=== PATIENT | female | born 1940 | race Caucasian/White ===

== ENCOUNTER 2024-04-20 18:29 | Emergency (ER) | payer OTHER ==
[~2024-04-20] VITALS: Ht 180.3 cm; Wt 104.3 kg
[~2024-04-20 18:29] MED LIST: CEFD300 PO; CYCL10 PO; LEVSOD100 PO; LISI20 PO; METF850 PO; NAPR375 PO; PRAV20 PO
[2024-04-20] MEDS ORDERED: NS 1,000 ML IV SCH (18:35)
[2024-04-20 19:27] LABS: BASOPHILS ABSOLUTE AUTO 0.05 K/mm3 (0.00-0.23); BASOPHILS PERCENT AUTO 0 % (0-2); EOSINOPHILS PERCENT AUTO 0 % (0-6); Hematocrit 36.4 % (33.0-51.0); Hemoglobin 11.9 g/dL (11.5-16.0); IMMATURE GRAN ABSOLUTE AUTO 0.05 K/mm3 (0.00-0.10); IMMATURE GRAN PERCENT AUTO 0 % (0-1); LYMPHOCYTES ABSOLUTE AUTO 0.55 K/mm3 (0.84-5.20); LYMPHOCYTES PERCENT AUTO 5 % (21-46); MONOCYTES ABSOLUTE AUTO 0.32 K/mm3 (0.16-1.47); MONOCYTES PERCENT AUTO 3 % (4-13); Mean Corpuscular HGB 28.7 pg (26.0-34.0); Mean Corpuscular HGB Conc 32.7 g/dL (31.5-36.5); Mean Corpuscular Volume 88 fL (80-100); Mean Platelet Volume 10.4 fL (9.1-12.4); NEUTROPHILS PERCENT AUTO 92 % (41-73); Platelet Count 192 K/mm3 (150-400); RDW Coefficient Variation 14.6 % (11.7-14.2); RDW Standard Deviation 47.3 fL (35.1-46.3); Red Blood Cell Count 4.14 M/mm3 (3.80-5.20); White Blood Cell Count 11.47 K/mm3 (4.00-11.30)
[2024-04-20 19:33] LABS: Source, Urine Clean Catch
[2024-04-20 19:40] LABS: Appearance, Urine Turbid (Clear); Blood, Urine 5+ (Neg); Color, Urine Yellow (P-Yellow); Glucose Qualitative, Urine Neg (Neg); Ketones, Urine 2+ (Neg); Leukocyte Esterase, Urine 3+ (Neg); Nitrite, Urine Pos (Neg); Protein, Urine 3+ (Neg); Specific Gravity, Urine 1.025 (1.003-1.022); Urobilinogen, Urine NORM (Normal)
[2024-04-20 19:49] LABS: Albumin, Blood 3.6 g/dL (3.4-5.0); Albumin/Globulin Ratio 1.1 (0.8-1.8); Bilirubin, Total 0.9 mg/dL (0.1-1.0); Bun/Creatinine Ratio 22.4 (12.0-20.0); Calcium, Blood 9.1 mg/dL (8.5-10.1); Creatinine, Blood 1.34 mg/dL (0.40-1.00); Globulin, Blood 3.3 g/dL (2.2-4.0); Potassium, Blood 4.4 mmol/L (3.5-5.5); Total Protein, Blood 6.9 g/dL (6.4-8.2)
[2024-04-20 20:05] LABS: Influenza A, PCR NEGATIVE (NEGATIVE); Influenza B, PCR NEGATIVE (NEGATIVE); Resp Syncytial Virus, PCR NEGATIVE (NEGATIVE); SARS-Cov-2 (COVID-19) PCR, MMC NEGATIVE (NEGATIVE)
[2024-04-20 20:09] LABS: Bilirubin, Urine 1+ (Neg)
[2024-04-20 20:13] LABS: Bacteria Many /hpf; Mucus Light (0-Heavy); Red Blood Cells, Urine 25-50 /hpf (0-2); Squamous Epithelial Cells Mod /hpf (Few); Transitional Epithelial Cells Rare /hpf (0-Rare); White Blood Cells, Urine TNTC /hpf (0-5)
[2024-04-20] MEDS ORDERED: CefTRIAXone Sodium 1,000 MG in NS 50 ML IV ONE (20:25)
[2024-04-20 20:30] VITALS: BP 117/57
[2024-04-20] MEDS ORDERED: CEPH500 PO (20:58)
== END 2024-04-20 21:13 | disposition home or self-care (01) ==
LOC: ER 18:29
PROVIDERS: Emergency Medicine
DX: T67.5XXA Heat exhaustion, unspecified, initial encounter (principal); N39.0 Urinary tract infection, site not specified; Z88.0 Allergy status to penicillin; Z79.899 Other long term (current) drug therapy; Z79.84 Long term (current) use of oral hypoglycemic drugs; I10 Essential (primary) hypertension; E11.9 Type 2 diabetes mellitus without complications
CPT/HCPCS: 0241U; 51702; 71045; 80053; 81001; 82550; 85025; 96361-59; 96365-59; 99284-25; J0696; J7030

== ENCOUNTER 2024-06-10 01:41 | Inpatient (IN) | payer MEDICARE ==
[2024-06-10] VITALS (7 sets, daily range): BP systolic 100–150; BP diastolic 53–105
[~2024-06-10] VITALS: Ht 180.3 cm; Wt 117.2 kg
[~2024-06-10 01:41] MED LIST changes: +CEPH500 PO
[2024-06-10 02:23] LABS: BASOPHILS ABSOLUTE AUTO 0.03 K/mm3 (0.00-0.23); BASOPHILS PERCENT AUTO 0 % (0-2); EOSINOPHILS PERCENT AUTO 0 % (0-6); Hemoglobin 12.4 g/dL (11.5-16.0); IMMATURE GRAN ABSOLUTE AUTO 0.11 K/mm3 (0.00-0.10); IMMATURE GRAN PERCENT AUTO 1 % (0-1); LYMPHOCYTES ABSOLUTE AUTO 0.51 K/mm3 (0.84-5.20); LYMPHOCYTES PERCENT AUTO 4 % (21-46); MONOCYTES ABSOLUTE AUTO 0.71 K/mm3 (0.16-1.47); MONOCYTES PERCENT AUTO 6 % (4-13); Mean Corpuscular HGB 29.6 pg (26.0-34.0); Mean Corpuscular HGB Conc 33.5 g/dL (31.5-36.5); Mean Corpuscular Volume 88 fL (80-100); Mean Platelet Volume 10.6 fL (9.1-12.4); NEUTROPHILS ABSOLUTE AUTO 10.62 K/mm3 (1.96-9.15); NEUTROPHILS PERCENT AUTO 89 % (41-73); Platelet Count 149 K/mm3 (150-400); RDW Coefficient Variation 14.3 % (11.7-14.2); RDW Standard Deviation 46.2 fL (35.1-46.3); Red Blood Cell Count 4.19 M/mm3 (3.80-5.20); White Blood Cell Count 11.98 K/mm3 (4.00-11.30)
[2024-06-10 02:31] LABS: Albumin, Blood 3.4 g/dL (3.4-5.0); Albumin/Globulin Ratio 0.9 (0.8-1.8); Bilirubin, Total 1.2 mg/dL (0.1-1.0); Bun/Creatinine Ratio 16.7 (12.0-20.0); Calcium, Blood 9.2 mg/dL (8.5-10.1); Creatinine, Blood 1.2 mg/dL (0.40-1.00); Globulin, Blood 3.6 g/dL (2.2-4.0); Potassium, Blood 4.9 mmol/L (3.5-5.5)
[2024-06-10 03:08] LABS: Source, Urine Straight Cath
[2024-06-10 03:11] LABS: Bilirubin, Urine Neg (Neg); Blood, Urine 5+ (Neg); Glucose Qualitative, Urine 3+ (Neg); Ketones, Urine Neg (Neg); Leukocyte Esterase, Urine 3+ (Neg); Nitrite, Urine Pos (Neg); Protein, Urine 3+ (Neg); Urobilinogen, Urine NORM (Normal)
[2024-06-10 03:19] LABS: Color, Urine Yellow (P-Yellow)
[2024-06-10 03:20] LABS: Appearance, Urine Cloudy (Clear)
[2024-06-10] MEDS ORDERED: NS 1,000 ML IV SCH ×2 (03:20→05:05)
[2024-06-10 03:21] LABS: Red Blood Cells, Urine 0-2 /hpf (0-2); White Blood Cells, Urine TNTC /hpf (0-5)
[2024-06-10 03:22] LABS: Bacteria Many /hpf; Squamous Epithelial Cells Few /hpf (Few)
[2024-06-10] MEDS ORDERED: CefTRIAXone Sodium 2,000 MG in NS 100 ML IV ONE (03:25)
[2024-06-10] MEDS ORDERED: Glucophage 850850 MG PO (04:19)
[2024-06-10] MEDS ORDERED: GLIP5 PO (04:19)
[2024-06-10] MEDS ORDERED: LEVOTHYROXINE PO (04:21)
[2024-06-10] MEDS ORDERED: Ondansetron HCl 2 MG / ML 2ML Vial IV PRN (05:05)
[2024-06-10] MEDS ORDERED: Levothyroxine Sodium 0.15 MG Tab PO SCH (06:00)
--- NOTE | 2024-06-10 06:29 | NUR ---
ARRIVAL TO PCU AFTER RECEIVING REPORT FROM ED RN, PATIENT TRANSFERRED TO PCU AT APPROX 0605. PATIENT TRANSFERRED OVER TO BED VIA SLIDER SHEET. PATIENT ALERT, ANSWERS ORIENTATION QUESTIONS. IS ANXIOUS, FEARFUL OF FALLING. THERAPEUTIC COMMUNICATION PROVIDED. MEDICAL ALERT NECKLACE REMOVED AND PLACED IN PERSONAL BELONGINGS BAGS. ENDORSING R KNEE PAIN, NO SWELLING OR DISCOLORATION NOTED. AFEBRILE. TELEMETRY SHOWING SINUS TACH 90s-110s. BP STABLE. SBP 110s. DENIES CHEST PAIN, PRESSURE. ON ROOM AIR, SATs >90%. TACHYPNEA AT REST. NS BOLUS FROM ED STILL INFUSING. ATTENDS CHANGE AND PW PLACED FOR URINARY INCONTINENCE. REDNESS, EXCORIATION TO BOTTOM, GROIN, AND ABD FOLDS. PICTURES IN CHART. CALL LIGHT IN REACH. WILL CONTINUE TO MONITOR AND REPORT TO ONCOMING RN.
[2024-06-10] MEDS ORDERED: Insulin Human Lispro 100 Units/ML 3ML Syringe SC SCH (07:30)
--- NOTE | 2024-06-10 07:42 | NUR ---
[facility] @ 3.4 CALLED FROM LAB GIVEN TO TARA CALIXTO. CALLED AT 07:40AM. WILL NOTIFY
[2024-06-10] MEDS ORDERED: Acetaminophen 325 MG TABLET PO PRN (08:50)
[2024-06-10] MEDS ORDERED: Lactobacil 2-S.Thermo-Bifido 1 1 Cap PO SCH (09:00)
[2024-06-10] MEDS ORDERED: Enoxaparin 30 MG/0.3 ML SYR SC SCH (09:00)
[2024-06-10] MEDS ORDERED: Pravastatin Sodium 20 MG Tab PO SCH (09:00)
[2024-06-10 09:20] LABS: Free Thyroxine 1.67 ng/dL (0.70-1.60); Triiodothyronine, Free 2.57 pg/mL (2.18-3.98)
[2024-06-10] MEDS ORDERED: Miconazole Nitrate 2% 85 GM PWD TOP PRN (10:25)
--- NOTE | 2024-06-10 10:56 | NUR ---
X-RAY TRANSPORTER TO ROOM AND TRANSFERED PT VIA SLIDER SHEET TO [facility] AT THIS TIME GOING TO X-RAY.
--- NOTE | 2024-06-10 11:13 | NUR ---
PT RETURNED FROM X-RAY, BACK IN BED AND HAS CALL LIGHT WITHIN REACH. RESTING WITH EVEN UNLABORED BREATHING.
[2024-06-10 14:41] LABS: Calcium, Blood 8.6 mg/dL (8.5-10.1); Creatinine, Blood 1.15 mg/dL (0.40-1.00); Potassium, Blood 4.6 mmol/L (3.5-5.5)
[2024-06-10] MEDS ORDERED: TraMADol HCl 50 MG Tab PO PRN (15:15)
--- NOTE | 2024-06-10 17:30 | NUR ---
END OF SHIFT NOTE: PT A&OX4 AND ABLE TO MAKE HER NEEDS KNOWN, USES CALL LIGHT APPROPRIATELY. VITAL SIGNS HAVE BEEN STABLE WITH O2 SATURATION >94% ON ROOM AIR, TELE SHOWING SINUS WITH PAC'S RATE IN 80'S, AND BLOOD PRESSURES HAVE BEEN STABLE. PT DID HAVE A RUN OF TACHY WITH A RATE IN 150'S @ 0900, SINCE THEM RATE HAS BEEN TRENDING DOWN TO 80-100. PT HAS BEEN INCONTINET TO URINE THIS SHIFT AND HAS A PUREWICK PLACED. DID A BLADDER SCAN SHOWING 28MLS AFTER VOIDING IN HER BRIEF.HAD A PELIVS, RIGHT ANKLE AND LEG X-RAY DONE DUE TO PAIN IN RIGHT KNEE AND SWOLLEN/BRUISED ANKLE. DR. SIMENTAL CONSULTED AND CAME BY AND A CAST BOOT WILL BE PLACED AND CONTINUE TO WORK WITH PT.NEEDED COVERAGE OF GLUCOSE PER EMAR THROUGHOUT THE SHIFT. LACTIC HAS LEVELED OUT TO 1.6 AND HAS NORMAL SALINE RUNNING AT 150MLS/HR. PAIN MEDICATION WAS GIVEN THROUHGOUT THE SHIFT FOR 8/10 PAIN IN HER RIGHT LEG. WILL NOTIFY TO ONCOMING SHIFT.
[2024-06-10] MEDS ORDERED: Famotidine 20 MG Tab PO SCH (21:00)
[2024-06-11 03:53] VITALS: BP 102/80
[2024-06-11 04:32] LABS: BASOPHILS ABSOLUTE AUTO 0.02 K/mm3 (0.00-0.23); BASOPHILS PERCENT AUTO 0 % (0-2); EOSINOPHILS PERCENT AUTO 0 % (0-6); Hematocrit 29.6 % (33.0-51.0); Hemoglobin 9.8 g/dL (11.5-16.0); IMMATURE GRAN ABSOLUTE AUTO 0.02 K/mm3 (0.00-0.10); IMMATURE GRAN PERCENT AUTO 0 % (0-1); LYMPHOCYTES ABSOLUTE AUTO 1.53 K/mm3 (0.84-5.20); LYMPHOCYTES PERCENT AUTO 26 % (21-46); MONOCYTES ABSOLUTE AUTO 0.03 K/mm3 (0.16-1.47); MONOCYTES PERCENT AUTO 1 % (4-13); Mean Corpuscular HGB 28.9 pg (26.0-34.0); Mean Corpuscular HGB Conc 33.1 g/dL (31.5-36.5); Mean Corpuscular Volume 87 fL (80-100); NEUTROPHILS ABSOLUTE AUTO 4.24 K/mm3 (1.96-9.15); NEUTROPHILS PERCENT AUTO 73 % (41-73); Platelet Count 111 K/mm3 (150-400); RDW Coefficient Variation 14.5 % (11.7-14.2); RDW Standard Deviation 46.5 fL (35.1-46.3); Red Blood Cell Count 3.39 M/mm3 (3.80-5.20); White Blood Cell Count 5.84 K/mm3 (4.00-11.30)
[2024-06-11 05:03] LABS: Bun/Creatinine Ratio 23.1 (12.0-20.0); Calcium, Blood 7.9 mg/dL (8.5-10.1); Creatinine, Blood 0.99 mg/dL (0.40-1.00); Potassium, Blood 4.4 mmol/L (3.5-5.5)
--- NOTE | 2024-06-11 05:37 | NUR ---
SHIFT SUMMARY ASSUMED CARE OF PT AT 1900. PT IS A/OX4. HEART SOUNDS REGULAR. LUNG SOUNDS DIMINISHED AT BASES. PT HAD PAIN IN R LEG AND WOULD ASK FOR PAIN MEDICATIONS EVERY 6 HOURS ORDERED. PT R LEG IS SWOLLEN WITH BRUSING ON R ANKLE. PT REPOSITIONED IN BED WITH 2P ASSIST. PT WAS INCONTINENT OF URINE IN [facility]. PT RESTED WITH EYES CLOSED MOST OF THE NOC.
[2024-06-11] MEDS ORDERED: Levothyroxine Sodium 0.125 MG Tab PO SCH (06:00)
[2024-06-11 08:00] VITALS: BP 120/81
[2024-06-11] MEDS ORDERED: Sodium Bicarbonate 650 MG Tab PO SCH (09:00)
[2024-06-11] MEDS ORDERED: CefTRIAXone Sodium 1,000 MG in NS 100 ML IV SCH (09:00)
[2024-06-11] MEDS ORDERED: FentaNYL Citrate 50 MCG/ML 2 ML Injection IV PRN (10:15)
[2024-06-11] MEDS ORDERED: HYDROcodone 5-APAP 325 TAB PO PRN (10:15)
[2024-06-11 11:09] VITALS: BP 105/58
[2024-06-11 16:58] VITALS: BP 108/72
--- NOTE | 2024-06-11 17:28 | NUR ---
SUMMARY PT A/O X4. HAS PAIN IN R ANKLE WHERE SHE HAD A FALL AT HOME AND SPRAINED HER ANKLE. PODIETRIST SAW PT TODAY AND PT WAS FITTED WITH A WALKING BOOT. PT VERY APREHENSIVE ABOUT GETTING OOB TODAY BUT WAS ENCOURAGED TO WORK WITH PHYSICAL THERAPY. PAIN MEDICATION CHANGED TO NORCO AND THAT SEEMS TO BE CONTROLING PAIN BETTER THAN TRAMADOL. NO OTHER ACUTE CHANGES. CHANGED TO MEDICAL STATUS TODAY.
[2024-06-11 19:24] VITALS: BP 112/54
[2024-06-11] MEDS ORDERED: Pravastatin Sodium 20 MG Tab PO SCH (21:00)
[2024-06-12 04:00] VITALS: BP 126/72
[2024-06-12 04:16] LABS: BASOPHILS ABSOLUTE AUTO 0.01 K/mm3 (0.00-0.23); BASOPHILS PERCENT AUTO 0 % (0-2); EOSINOPHILS ABSOLUTE AUTO 0.37 K/mm3 (0.00-0.68); EOSINOPHILS PERCENT AUTO 8 % (0-6); Hematocrit 28.9 % (33.0-51.0); Hemoglobin 9.4 g/dL (11.5-16.0); IMMATURE GRAN ABSOLUTE AUTO 0.02 K/mm3 (0.00-0.10); IMMATURE GRAN PERCENT AUTO 0 % (0-1); LYMPHOCYTES ABSOLUTE AUTO 1.14 K/mm3 (0.84-5.20); LYMPHOCYTES PERCENT AUTO 24 % (21-46); MONOCYTES PERCENT AUTO 13 % (4-13); Mean Corpuscular HGB 28.5 pg (26.0-34.0); Mean Corpuscular HGB Conc 32.5 g/dL (31.5-36.5); Mean Corpuscular Volume 88 fL (80-100); Mean Platelet Volume 10.9 fL (9.1-12.4); NEUTROPHILS PERCENT AUTO 55 % (41-73); Platelet Count 106 K/mm3 (150-400); RDW Coefficient Variation 14.4 % (11.7-14.2); RDW Standard Deviation 46.8 fL (35.1-46.3); White Blood Cell Count 4.74 K/mm3 (4.00-11.30)
[2024-06-12 04:29] LABS: Bun/Creatinine Ratio 25.2 (12.0-20.0); Calcium, Blood 8.2 mg/dL (8.5-10.1); Creatinine, Blood 0.95 mg/dL (0.40-1.00); Potassium, Blood 4.6 mmol/L (3.5-5.5)
--- NOTE | 2024-06-12 05:14 | NUR ---
SHIFT SUMMARY ASSUMED CARE OF PT AT 1900. PT IS A/OX4. HEART SOUNDS REGULAR. LUNG SOUNDS HAVE CRACKLES AT BASES. PT REQUESTED PAIN MEDICATION EVERY HOURS, THIS NURSE INFORMED PT THAT SHE MUST CALL FOR PAIN MEDICATIONS IF SHE IS IN PAIN, THEY ARE NOT SCHEDULED. PT ALSO ASKED THIS NURSE TO MOVE HER LEGS IN BED DUE TO BEING TIRED FROM THERAPY. THIS NURSE ENCOURAGED PT TO MOVE THEN HERSELF, WITH MINIMAL ASSSISTANCE IF SHE WANTS TO GO HOME. PT NODDED IN UNDERSTANDING. PT RESTED WITH EYES CLOSED T/O THE NOC.
[2024-06-12 09:12] VITALS: BP 144/72
[2024-06-12 15:46] VITALS: BP 147/82
--- NOTE | 2024-06-12 16:39 | NUR ---
SHIFT SUMMARY PT A&Ox4, CALLS AND COMMUNICATES NEEDS APPROPRIATELY. VERY UNMOTIVATED AND MANIPULATIVE WHEN IT COME TO PROVIDING CARE. BP STABLE, SINUS 80's, DENIES CP/PRESSURE. SpO2> 92% RA, DENIES CP/PRESSURE. PT REFUSES TO GET OUT OF BED AND RESUSES Q2 TURNS, PROVIDED EDUCATION. MANAGED PT's PAIN PER EMAR. NO OTHER EVENTS, WILL REPORT TO ONCOMING RN.
[2024-06-12 19:29] VITALS: BP 138/69
[2024-06-13 00:22] VITALS: BP 133/99
[2024-06-13 03:54] VITALS: BP 142/94
[2024-06-13 04:16] LABS: BASOPHILS ABSOLUTE AUTO 0.02 K/mm3 (0.00-0.23); BASOPHILS PERCENT AUTO 0 % (0-2); EOSINOPHILS ABSOLUTE AUTO 0.42 K/mm3 (0.00-0.68); EOSINOPHILS PERCENT AUTO 8 % (0-6); Hematocrit 28.9 % (33.0-51.0); Hemoglobin 9.5 g/dL (11.5-16.0); IMMATURE GRAN ABSOLUTE AUTO 0.01 K/mm3 (0.00-0.10); IMMATURE GRAN PERCENT AUTO 0 % (0-1); LYMPHOCYTES ABSOLUTE AUTO 1.22 K/mm3 (0.84-5.20); LYMPHOCYTES PERCENT AUTO 24 % (21-46); MONOCYTES PERCENT AUTO 12 % (4-13); Mean Corpuscular HGB 28.8 pg (26.0-34.0); Mean Corpuscular HGB Conc 32.9 g/dL (31.5-36.5); Mean Corpuscular Volume 88 fL (80-100); Mean Platelet Volume 10.6 fL (9.1-12.4); NEUTROPHILS PERCENT AUTO 55 % (41-73); Platelet Count 127 K/mm3 (150-400); RDW Coefficient Variation 14.2 % (11.7-14.2); RDW Standard Deviation 45.6 fL (35.1-46.3); White Blood Cell Count 5.07 K/mm3 (4.00-11.30)
[2024-06-13 04:41] LABS: Bun/Creatinine Ratio 24.5 (12.0-20.0); Calcium, Blood 8.6 mg/dL (8.5-10.1); Creatinine, Blood 0.9 mg/dL (0.40-1.00); Potassium, Blood 4.5 mmol/L (3.5-5.5)
--- NOTE | 2024-06-13 04:45 | NUR ---
SHIFT NOTE: PT A/0X4 ABLE TO USE CALL LIGHT TO MAKE NEEDS KNOWN. SHE IS VERY ANXIOUS AND NEEDS FREQUENT REASSURANCE. SHE IS ON TELE IN SINUS, DENIES CHEST PAIN/PRESSURE. SHE IS ON RA WITH SPO2>95%. SHE IS UNMOTIVATED TO MOVE HERSELF IN BED, SHE HAS BEEN REPOSITIONED BY STAFF Q2. SHE HAS A PUREWICK IN PLACE DRAINING TO SUCTION. WILL CONTINUE TO MONITOR AND REPORT TO ONCOMING RN
[2024-06-13 08:59] VITALS: BP 145/66
[2024-06-13 15:00] VITALS: BP 132/83
--- NOTE | 2024-06-13 16:07 | NUR ---
TRANSFER TO 331 PT A&Ox4, CALLS AND COMMUNICATES NEEDS APPROPRIATELY. VERY UNMOTIVATED AND MANIPULATIVE WHEN IT COME TO PROVIDING CARE. BP STABLE, SINUS 80's, DENIES CP/PRESSURE. SpO2> 92% RA, DENIES CP/PRESSURE. PT REFUSES TO GET OUT OF BED AND REFUSES Q2 TURNS, PROVIDED EDUCATION. PUREWICK IN PLACE, PATENT. MANAGED PT's PAIN PER EMAR. REPORT GIVEN TO DURGA UGALDE. ALL PT BELONGINGS GATHERED AND PT TRANSFERED TO [facility] VIA HOSPITAL BED AT APPROXIMATELY 1600.
--- NOTE | 2024-06-13 16:35 | NUR ---
TRANSFERRED NOTE: PATIENT ARRIVES TO ROOM AT 1600 VIA BED FROM PCU RM 8. ASSUME CARE OF PATIENT. SKIN ASSESSMENT c 2 RN'S VERIFIED COMPLETED. PATIENT ORIENTATED TO ROOM AND CALL SYSTEM. PATIENT PROVIDED c FRESH ICE H20, BOTH HIPS, BLE'S FLOATED ON PILLOWS. PATIENT ON TELE, NO EVENTS ON TELE, SR HR IN THE 80'S BPM. PATIENT HAS PIV TO R FOREARM SL. PATIENT DENIES CP/PRESSURE, SOB, N/V AND DIZZINESS. PATIENT RESTING IN BED c HOB ELEVATED. PATIENT INCONTINENT OF BLADDER, PUREWICK AND ATTENDS IN PLACED. CALL LIGHT IN REACH.
[2024-06-13 19:09] VITALS: BP 101/77
[2024-06-14 04:08] VITALS: BP 135/66
--- NOTE | 2024-06-14 04:35 | NUR ---
SHIFT SUMMARY: Pt is admitted for sepsis and is a full code. Is alert and able to make needs known. ADLs have been 1p but did not get out of bed during shift. Pain was managed with PRN pain medication. Peter reports sinus in the 80s.
[2024-06-14 07:30] VITALS: BP 139/85
[2024-06-14] MEDS ORDERED: NS 250 ML IV PRN (08:05)
[2024-06-14 15:33] VITALS: BP 121/43
--- NOTE | 2024-06-14 15:58 | NUR ---
SHIFT SUMMARY: NO NEW CHANGES THIS SHIFT. PATIENT A/OX4, PLEASANT AND COOPERATIVE c CARE THIS SHIFT. PATIENT DENIES CP/PRESSURE, SOB, N/V AND DIZZINESS. PATIENT STILL ON TELE, SR HR IN THE 70'S BPM. MIPELEX DRESSING CHANGED TO COCCYX, REPOSITIONED, GREAT APPETITE, INCONTINENT OF BLADDER, PUREWICKED AND ATTENDS IN PLACED, TOLERATING WELL. PATIENT RECEIVED SCHEDULED MEDS PER EMAR. VITAL SIGNS REVIEWED. PATIENT AWAITING INSURANCE AUTH TO D/C SNF. BED ALARM ON FOR SAFETY. CALL LIGHT IN REACH.
--- NOTE | 2024-06-14 18:13 | NUR ---
TRANSFERRED CARE FROM TRAM RN, WILL RELAY TO PM RN
[2024-06-14 20:36] VITALS: BP 107/55
[2024-06-15 04:58] VITALS: BP 124/77
[2024-06-15 07:23] VITALS: BP 130/73
[2024-06-15 15:18] VITALS: BP 141/72
--- NOTE | 2024-06-15 18:48 | NUR ---
SUMMARY- PT AAOX3-4. BEDREST. PT REFUSED TO GET OOB THIS SHIFT. GIVEN BED BATH THIS SHIFT. PT HAS STAGE 2 ULCER ON COCCYX. DRESSING CHANGED THIS SHIFT. PT HAD COMPLAINTS OF PAIN IN HER R ANKLE THIS SHIFT-PAIN MEDS PER EMAR HELPED PER PT. NO ACUTE EVENTS THIS SHIFT. PT ON RA.
[2024-06-15 19:26] VITALS: BP 147/76
[2024-06-16 04:00] VITALS: BP 145/68
--- NOTE | 2024-06-16 06:21 | NUR ---
Patient alert and oriented x3, VSS, resting in bed on room air. PRN pain medication given x1 per patient request, tolerated well. Purewick in place, collecting appropriately. Patient had one incontinent bowel movement this shift. Extensive education provided as tolerated regarding frequent turns, pressure injury prevention, current skin and mobility issues; patient initially resistant r/t prior healthcare incidents with being dropped, injuries, but compliant with turns for majority of shift.
[2024-06-16 07:43] VITALS: BP 146/82
--- NOTE | 2024-06-16 14:10 | NUR ---
LEFT ADVANCE DIRECTIVE WITH PT FOR REVIEW. PT DENIES ANY ACUTE NEEDS AT THIS TIME.
--- NOTE | 2024-06-16 14:24 | NUR ---
PATIENT REFUSES TO USE A BEDPAN AND PREFERS TO HAVE BM IN BRIEF. HAD TO CHANGE THE BEDDING. I BROUGHT IN A BARIATRIC BEDPAN AND SHOWED HER HOW NICE IT IS. AFTER THE PAINFUL BED CHANGE AND BRIEF CHANGE, SHE IS NOW WILLING TO TRY THE BARIATRIC BED HECK.
[2024-06-16 16:04] VITALS: BP 128/71
--- NOTE | 2024-06-16 18:46 | NUR ---
PT A&OX4 TODAY, ABLE TO MAKE NEEDS KNOWN. TOLERATED IV FLUIDS/ANTIBIOTICS WELL. PUREWICK IN PLACE, WAS CHANGED BY LITHOGRAPHIC STRIPPER. OUTPUT IS ADEQUATE, HAD BM. CALL LIGHT WITHIN REACH.
[2024-06-16 19:22] VITALS: BP 142/85
[2024-06-17 03:19] VITALS: BP 149/76
--- NOTE | 2024-06-17 04:04 | NUR ---
PT RESTLESS AND C/O PAIN THROUGH THE NIGHT. MEDICATED X 2. PT RESTING QUIETLY IN BED WITH EYES CLOSED. NO DISTRESS NOTED AT THIS TIME. WILL CONTINUE TO MONITOR.
--- NOTE | 2024-06-17 14:53 | NUR ---
Pt given power of deputy county attorney inormation. Very anxious about her papers and planning her life. Review of her painfull foot with the nurse. Will follow up with further discussion on code status.
[2024-06-17 15:13] VITALS: BP 138/60
--- NOTE | 2024-06-17 19:29 | NUR ---
SUMMARY- NO CHANGES WITH PT THIS SHIFT. PT AAOX4. PT AGREED TO SIT ON EDGE OF BED FOR LUNCH, BUT REFUSED TO SIT IN CHAIR. PAIN WELL CONTROLLED WITH EMAR PAIN MEDS. NO ACUTE EVENTS THIS SHIFT. PT ON RA.
[2024-06-17 19:36] VITALS: BP 147/77
[2024-06-18 03:02] VITALS: BP 150/83
--- NOTE | 2024-06-18 04:33 | NUR ---
PT RESTLESS. MEDICATED X 2 THROUGH THE NIGHT. INCONTINENT OF BM X2. RESTING INTERMITTENTLY.
[2024-06-18 07:40] VITALS: BP 157/75
[2024-06-18] MEDS ORDERED: EUTHYROX125 MCG PO (12:06)
[2024-06-18] MEDS ORDERED: FAMO20 PO (12:07)
[2024-06-18] MEDS ORDERED: Acetaminophen325 M1 PO (12:07)
[2024-06-18] MEDS ORDERED: Norco 5-325 Ta1 EACH PO (12:08)
[2024-06-18] MEDS ORDERED: HUMULIN R100 UNIT/2 (12:09)
[2024-06-18] MEDS ORDERED: SODBIC650 PO (12:10)
[2024-06-18] MEDS ORDERED: MICONAZOLE NITR85 GM TOP (12:10)
[2024-06-18] MEDS ORDERED: NYSTATIN100000 U10 MT (12:10)
[2024-06-18] MEDS ORDERED: CELE100 PO (12:11)
[2024-06-18] MEDS ORDERED: Nystatin 100,000 Unit/ML Susp 5 ML UDC SS SCH (13:00)
--- NOTE | 2024-06-18 13:44 | NUR ---
PT HAS BEEN AOX4 AND COOPERATIVE OF CARE. PT TRANSFERED AT 1340 TO [facility] REPORT GIVEN PRIOR TO TRANSPORT VIA GURNEY. PT HAS BEEN COOPERATIVE OF CARE ONLY WANTING TO STAY IN BED AND REST.PT WAS TREATED FOR PAIN PER EMAR. ALL PERSONAL BELONINGS WERE COLLECTED AND SENT WITH PT. PACKET WAS SENT WITH TRANSPORTERS.
== END 2024-06-18 13:40 | DRG 872 ==
LOC: ER 01:41 → MEDS 05:00 → ERHOLD 05:00 → PCU 05:00 → MEDS 06-13 16:02
PROVIDERS: Emergency Medicine; Family Medicine; ADMIT Internal Medicine
DX: A41.9 Sepsis, unspecified organism (principal); N39.0 Urinary tract infection, site not specified; E87.1 Hypo-osmolality and hyponatremia; E87.20 Acidosis, unspecified; R65.20 Severe sepsis without septic shock; D69.6 Thrombocytopenia, unspecified; E03.9 Hypothyroidism, unspecified; I10 Essential (primary) hypertension; S93.401A Sprain of unspecified ligament of right ankle, initial encounter; W18.30XA Fall on same level, unspecified, initial encounter; E11.40 Type 2 diabetes mellitus with diabetic neuropathy, unspecified; Z88.1 Allergy status to other antibiotic agents; Z79.890 Hormone replacement therapy; Z79.84 Long term (current) use of oral hypoglycemic drugs; Z79.899 Other long term (current) drug therapy
CPT/HCPCS: 36415; 51701; 72170; 73600; 80048; 80053; 81001; 82947; 83036; 83605; 84439; 84443; 84481; 85025; 87040; 87077; 87086; 87186; 93005; 93010; 96365; 97110; 97162; 97530; 99285-25; A9270; J0696; J1650; J7030; J7050

== ENCOUNTER 2025-08-20 03:31 | Inpatient (IN) | payer MEDICARE ==
[~2025-08-20] VITALS: Ht 180.3 cm; Wt 120.0 kg
[~2025-08-20 03:31] MED LIST changes: +Acetaminophen325 M1 PO; +CELE100 PO; +EUTHYROX125 MCG PO; +FAMO20 PO; +GLIP5 PO; +Glucophage 850850 MG PO; +HUMULIN R100 UNIT/2; +LEVOTHYROXINE PO; +MICONAZOLE NITR85 GM TOP; +NYSTATIN100000 U10 MT; +Norco 5-325 Ta1 EACH PO; -PRAV20 PO; +PRAVASTATIN SOD40 MG PO; +SODBIC650 PO
[2025-08-20 04:31] LABS: Source, Urine Straight Cath
[2025-08-20 04:56] LABS: Bilirubin, Urine Neg (Neg); Color, Urine Brown (P-Yellow); Glucose Qualitative, Urine Neg (Neg); Ketones, Urine 1+ (Neg); Leukocyte Esterase, Urine 2+ (Neg); Protein, Urine 3+ (Neg); Specific Gravity, Urine 1.020 (1.003-1.022); Urobilinogen, Urine 1+ (Normal)
[2025-08-20 05:04] LABS: BASOPHILS ABSOLUTE AUTO 0.05 K/mm3 (0.00-0.23); BASOPHILS PERCENT AUTO 1 % (0-2); EOSINOPHILS ABSOLUTE AUTO 0.00 K/mm3 (0.00-0.68); EOSINOPHILS PERCENT AUTO 0 % (0-6); Hematocrit 38.2 % (33.0-51.0); Hemoglobin 12.4 g/dL (11.5-16.0); IMMATURE GRAN ABSOLUTE AUTO 0.11 K/mm3 (0.00-0.10); IMMATURE GRAN PERCENT AUTO 1 % (0-1); LYMPHOCYTES ABSOLUTE AUTO 0.96 K/mm3 (0.84-5.20); LYMPHOCYTES PERCENT AUTO 11 % (21-46); MONOCYTES ABSOLUTE AUTO 0.37 K/mm3 (0.16-1.47); MONOCYTES PERCENT AUTO 4 % (4-13); Mean Corpuscular HGB Conc 32.5 g/dL (31.5-36.5); Mean Corpuscular Volume 92 fL (80-100); NEUTROPHILS ABSOLUTE AUTO 7.30 K/mm3 (1.96-9.15); NEUTROPHILS PERCENT AUTO 83 % (41-73); NRBC ABSOLUTE 0.00 K/mm3 (0.00-0.02); NRBC Auto 0.0 /100 WBC (0.0-0.2); Platelet Count 201 K/mm3 (150-400); RDW Coefficient Variation 17.7 % (11.7-14.2); RDW Standard Deviation 58.7 fL (35.1-46.3)
[2025-08-20 05:06] LABS: Red Blood Cells, Urine 50-100 /hpf (0-2); White Blood Cells, Urine TNTC /hpf (0-5)
[2025-08-20 05:29] LABS: U Amphetamine Screen Not Detected; U Barbiturate Screen Not Detected; U Benzodiazapine Screen Not Detected; U Buprenorphine Screen Not Detected; U Cannabinoids Screen Not Detected; U Cocaine Screen Not Detected; U Methadone Screen Not Detected; U Methamphetamine Screen Not Detected; U Opiates Screen Not Detected; U Oxycodone Screen Not Detected; U Phencyclidine Screen Not Detected
[2025-08-20] MEDS ORDERED: CefTRIAXone Sodium 1,000 MG in NS 50 ML IV ONE (05:30)
[2025-08-20] MEDS ORDERED: NS 1,000 ML IV SCH (05:35)
[2025-08-20 05:56] LABS: Magnesium, Blood 2.2 mg/dL (1.6-2.4)
[2025-08-20 06:02] LABS: Alanine Aminotransfer (ALT/SGP 23.0 U/L (12-78); Albumin, Blood 3.3 g/dL (3.4-5.0); Albumin/Globulin Ratio 0.9 (0.8-1.8); Anion Gap 12.0 mmol/L (3-11); Aspartate Aminotrans (AST/SGOT 23.0 U/L (12-37); Bilirubin, Total 0.9 mg/dL (0.1-1.0); Blood Urea Nitrogen 25.0 mg/dL (8-24); CO2, Blood 23.0 mmol/L (21-32); Calcium, Blood 9.3 mg/dL (8.5-10.1); Chloride, Blood 110.0 mmol/L (98-108); Creatinine, Blood 1.83 mg/dL (0.40-1.00); Globulin, Blood 3.7 g/dL (2.2-4.0); Glucose, Blood 237.0 mg/dL (70-99); Phosphorus, Blood 2.0 mg/dL (2.5-4.9); Potassium, Blood 3.5 mmol/L (3.5-5.5); Sodium, Blood 141.0 mmol/L (136-145); Thyroid Stimulating Hormone 103.0 uIU/mL (0.360-4.800); Total Protein, Blood 7.0 g/dL (6.4-8.2)
[2025-08-20] MEDS ORDERED: Ondansetron HCl 2 MG / ML 2ML Vial IV PRN (06:45)
[2025-08-20] MEDS ORDERED: FLU VACC TS2025(65UP)/MF59C/PF 45 MCG/0.5 ML SYRINGE IM SCH (06:45)
[2025-08-20 08:39] VITALS: BP 123/100
[2025-08-20] MEDS ORDERED: Enoxaparin 40 MG/0.4 ML SYR SC SCH (09:00)
[2025-08-20] MEDS ORDERED: Lactobacil 2-S.Thermo-Bifido 1 1 Cap PO SCH (09:00)
[2025-08-20] MEDS ORDERED: LEVSOD100 PO (10:09)
[2025-08-20] MEDS ORDERED: ASPI81CH PO (10:10)
[2025-08-20] MEDS ORDERED: IBUP200 PO (10:10)
[2025-08-20] MEDS ORDERED: PSEU120ER PO (10:11)
--- NOTE | 2025-08-20 11:35 | NUR ---
ADMISSION NOTE: PATIENT ARRIVED TO THE UNIT AT 0825 VIA GURNEY. SHE WAS TRANSFERRED TO THE BED, SKIN ASSESSED, PHOTOS TAKEN, AND CLEANED/ZINC CREAM APPLIED. PATIENT SETTLED IN ROOM, CALL LIGHT PROVIDED, BED ALARM SET, NO SIGNS OR SYMPTOMS OF DISTRESS, PLAN OF CARE ONGOING.
[2025-08-20 11:42] VITALS: BP 101/58
[2025-08-20] MEDS ORDERED: Zinc Oxide Ointment 30 GM TOP SCH (11:55)
--- NOTE | 2025-08-20 15:52 | NUR ---
DR. JONES CAME TO BEDSIDE AND EVALUATED THE PATIENT FOR CONSULT. RN AT BEDSIDE. DR. JONES EXPRESSED TO THE PATIENT THAT " I DON'T THINK YOU NEED SURGERY." AND THEN EXITED ROOM. RN ASKED IF SURGERY ISN'T THE PLAN, THEN IS THE PATIENT NO LONGER NPO? DR. JONES DID NOT ANSWER/ACKNOWLEDGE RN. RN FOLLOWED UP WITH DR. LOPEZ. PER DR. LOPEZ WILL WAIT FOR HIS NOTE/OR/WILL MESSAGE HIM. ALSO NOTIFIED DR. LOPEZ OF LARGE AMOUNT OF GUERRA THICK PURLENT DRAINAGE COMING FROM PATIENT'S VAGINAL AREA.
--- NOTE | 2025-08-20 16:11 | NUR ---
SHIFT SUMMARY: PATIENT IS A&OX4/HEAVY 2-3 PERSON ASSIST WITH CARE. PATIENT HAS REMAINED IN BED, BEING REPOSITIONED Q2HRS TOLERATED. CONTINING X1 BAG OF LR AT 125ML/HR. SHE REMAINS NPO UNTIL NOTES FROM DR. JONES OR REPORTED OTHERWISE FROM DR. LOPEZ. SEE PREVIOUS NURSE NOTE PATIENT IN BED, ALERT, CALL LIGHT WITHIN REACH, NO SIGNS OR SYMPTOMS OF DISTRESS, PLAN OF CARE ONGOING.
[2025-08-20 16:12] VITALS: BP 124/65
[2025-08-20] MEDS ORDERED: Insulin Human Lispro 100 Units/ML 3ML Syringe SC SCH (16:30)
[2025-08-20] MEDS ORDERED: Pseudoephedrine HCl 120 MG TabCR PO PRN (16:35)
[2025-08-20] MEDS ORDERED: Potassium Phosphate Dibasic 30 MM in Dextrose 5% 500 ML IV STA (16:36)
[2025-08-20 19:22] VITALS: BP 121/61
[2025-08-20] MEDS ORDERED: Miconazole Nitrate 2% 85 GM PWD TOP SCH (21:00)
[2025-08-20 23:43] VITALS: BP 84/54
[2025-08-20 23:49] VITALS: BP 118/67
[2025-08-21 04:48] VITALS: BP 103/63
[2025-08-21 05:02] LABS: BASOPHILS ABSOLUTE AUTO 0.03 K/mm3 (0.00-0.23); BASOPHILS PERCENT AUTO 0 % (0-2); EOSINOPHILS ABSOLUTE AUTO 0.00 K/mm3 (0.00-0.68); EOSINOPHILS PERCENT AUTO 0 % (0-6); Hematocrit 32.1 % (33.0-51.0); Hemoglobin 10.7 g/dL (11.5-16.0); IMMATURE GRAN ABSOLUTE AUTO 0.05 K/mm3 (0.00-0.10); IMMATURE GRAN PERCENT AUTO 1 % (0-1); LYMPHOCYTES ABSOLUTE AUTO 1.52 K/mm3 (0.84-5.20); LYMPHOCYTES PERCENT AUTO 16 % (21-46); MONOCYTES ABSOLUTE AUTO 0.43 K/mm3 (0.16-1.47); MONOCYTES PERCENT AUTO 5 % (4-13); Mean Corpuscular HGB Conc 33.3 g/dL (31.5-36.5); Mean Corpuscular Volume 91 fL (80-100); NEUTROPHILS ABSOLUTE AUTO 7.51 K/mm3 (1.96-9.15); NEUTROPHILS PERCENT AUTO 79 % (41-73); NRBC ABSOLUTE 0.00 K/mm3 (0.00-0.02); NRBC Auto 0.0 /100 WBC (0.0-0.2); Platelet Count 173 K/mm3 (150-400); RDW Coefficient Variation 17.5 % (11.7-14.2); RDW Standard Deviation 58.3 fL (35.1-46.3)
[2025-08-21 05:50] LABS: Alanine Aminotransfer (ALT/SGP 18.0 U/L (12-78); Albumin, Blood 2.6 g/dL (3.4-5.0); Albumin/Globulin Ratio 0.9 (0.8-1.8); Anion Gap 10.0 mmol/L (3-11); Aspartate Aminotrans (AST/SGOT 25.0 U/L (12-37); Bilirubin, Total 0.6 mg/dL (0.1-1.0); Blood Urea Nitrogen 18.0 mg/dL (8-24); CO2, Blood 22.0 mmol/L (21-32); Calcium, Blood 8.2 mg/dL (8.5-10.1); Chloride, Blood 110.0 mmol/L (98-108); Creatinine, Blood 1.42 mg/dL (0.40-1.00); Globulin, Blood 2.9 g/dL (2.2-4.0); Glucose, Blood 147.0 mg/dL (70-99); Magnesium, Blood 1.8 mg/dL (1.6-2.4); Phosphorus, Blood 2.9 mg/dL (2.5-4.9); Potassium, Blood 3.2 mmol/L (3.5-5.5); Sodium, Blood 139.0 mmol/L (136-145); Total Protein, Blood 5.5 g/dL (6.4-8.2)
[2025-08-21] MEDS ORDERED: CefTRIAXone Sodium 1,000 MG in NS 100 ML IV SCH (06:00)
--- NOTE | 2025-08-21 06:40 | NUR ---
SHIFT SUMMARY A/Ox4, 1ST DEGREE AV BLOCK ON TELE, OTHER VSS ON RA. BM THIS SHIFT. Q2 CHECK AND CHANGES COMPLETED. EXCORIATION AT ROSALINDA AREA, THIGHS, BACK CLEANED, ZINC PASTE APPLIED. AYALA PATENT, DRAINING CLOUDY BROWN URINE. MD NOTIFIED OF POSITIVE BLOOD CULTURE IN ONE OF TWO SAMPLES. PRN TYLENOL EFFECTIVE FOR 4/10 HEADACHE. 2P ASSIST TO REPOSITION. SAFETY PRECAUTIONS IN PLACE, CALL LIGHT IN REACH.
[2025-08-21 07:21] VITALS: BP 101/52
[2025-08-21] MEDS ORDERED: Magnesium Hydroxide Conc 10 ML UDC PO SCH (09:00)
[2025-08-21 11:29] VITALS: BP 111/64
--- NOTE | 2025-08-21 14:00 | NUR ---
CLARIFIED WITH DR LOPEZ, MIGELED TO CHANGE SWAB SEND OUT TO IN HOUSE AND CHANGE PARTIAL TESTING TO URINE SAMPLE COLLECTION. LAB NOTIFIED.
[2025-08-21 15:10] VITALS: BP 120/56
[2025-08-21 16:47] LABS: Chlamydia Trachomatis Vaginal NOT DETECTED (NOT DETECT); Neisseria Gonorrhoea Vaginal NOT DETECTED (NOT DETECT)
--- NOTE | 2025-08-21 18:07 | NUR ---
SHIFT SUMMARY PATIENT IN BED THIS SHIFT. AYALA IN PLACE DRAINING JOHNNIE URINE FREELY. REPORTS MILD BACK PAIN WHICH IS ALLEVIATED WITH REPOSITIONING. VAGINAL DISCHARGE SPECIMEN SENT. BOWEL MEDS GIVEN WITH NO RESULTS. POTASSIUM CORRECTION GIVEN PER MAR. A/O X4. ABLE TO MAKE NEEDS KNOWN. ROSALINDA AREA EXCORIATED, CLEANSED AND POWDER APPLIED. DRAINING GREEN/YELLOW PURLULENT FOUL SMELLING DISCHARGE. CALL LIGHT IN REACH.
[2025-08-21 20:55] VITALS: BP 121/65
[2025-08-21 23:22] VITALS: BP 107/60
[2025-08-22] MEDS ORDERED: NS 250 ML IV PRN (02:35)
[2025-08-22 06:34] VITALS: BP 109/57
--- NOTE | 2025-08-22 07:05 | NUR ---
SHIFT SUMMARY A/Ox4, VSS ON RA. PT REPORTS FEELING BETTER. INCREASED STRENGTH NOTED WITH REPOSITIONING AND BRIEF CHANGES. TWO LARGE BM OVERNIGHT, WITH SECOND ONE BEING LOOSE. AYALA DRAINING JOHNNIE URINE WITH SEDIMENT. PT DENIES SOB, NAUSEA, PAIN. SAFETY PRECAUTIONS IN PLACE, CALL LIGHT IN REACH.
[2025-08-22 08:02] VITALS: BP 108/57
[2025-08-22 10:11] LABS: Anion Gap 10.0 mmol/L (3-11); Blood Urea Nitrogen 15.0 mg/dL (8-24); CO2, Blood 23.0 mmol/L (21-32); Calcium, Blood 8.2 mg/dL (8.5-10.1); Chloride, Blood 109.0 mmol/L (98-108); Creatinine, Blood 1.34 mg/dL (0.40-1.00); Glucose, Blood 138.0 mg/dL (70-99); Magnesium, Blood 2.1 mg/dL (1.6-2.4); Phosphorus, Blood 2.4 mg/dL (2.5-4.9); Potassium, Blood 3.5 mmol/L (3.5-5.5); Sodium, Blood 138.0 mmol/L (136-145)
[2025-08-22] MEDS ORDERED: Potassium Phosphate Dibasic 30 MM in Dextrose 5% 500 ML IV STA (10:30)
--- NOTE | 2025-08-22 18:13 | NUR ---
SHIFT SUMMARY PATIENT WORKING WITH PT THIS SHIFT, WAS NOT ABLE TO STAND BUT A FEW SECONDS AND REQUIRED 2 MOD ASSIST WITH GAIT BELT AND WALKER. AYALA IN PLACE, DRAINING TO GRAVITY. ENCOURAGED INCREASED INDEPENDENCE IN BED AND WITH HYGIENE CARES. POTASSIUM PHOS REPLACED, TOLERATED WELL. FRIEND JENNI IN THIS SHIFT, ENDORSES THAT SHE IS POA AND WAS ASKED TO BRING IN PAPERWORK, STATED SHE WILL. NO BM THIS SHIFT. CALL LIGHT IN REACH.
[2025-08-22 19:30] VITALS: BP 129/73
--- NOTE | 2025-08-23 04:48 | NUR ---
ORIENTING NURSE DOCUMENTATION REVIEW: TREATMENTS, MEDICATIONS AND PATIENT CARE PROVIDED TO PATIENT AND DOCUMENTATION ENTERED BY ORIENTING NURSELUCINA, OVERSEEN BY THIS RN.
--- NOTE | 2025-08-23 05:09 | NUR ---
SHIFT SUMMARY AYALA IN PLACE DRAINING JOHNNIE URINE TO GRAVITY. 2P MAX ASSIST. EXTENSIVE ROSALINDA CARE FOLLOWED BY ZINC OXIDE + POWDER AFTER LARGE SOFT BM IN EVENING 08/22. PT CONTINUALLY DISPLAYS LOW MOTIVATION TO PARTICIPATE IN ACTIVITY, AND DECLINES GETTING UP TO USE BSC. DISPOSITION HOME IS NOT SAFE OPTION -- PT LIVES ALONE AND SELF NEGLECTS -- SEE APS CASE. DOES HAVE VISITORS 1X/WK WHO HELP SHOP/CLEAN, BUT NOT CARE FOR PT. PT IS ADAMENT SHE CARES FOR HER SELF. RFA IV. BINDER FOR LARGE UMBILICAL HERNIA OBTAINED. A&OX4. HAS NOT PARTICIPATED IN SITTING/DANGLING, OR STANDING YET FOR THIS RN. SLEPT WELL THROUGH NIGHT. DECLINED ANALGESIA PER DEC. PT DECLINING ROSALINDA CARE IN AM 08/23.
[2025-08-23 05:39] LABS: Albumin, Blood 2.7 g/dL (3.4-5.0); Anion Gap 12 mmol/L (3-11); Blood Urea Nitrogen 14 mg/dL (8-24); CO2, Blood 21 mmol/L (21-32); Calcium, Blood 8.0 mg/dL (8.5-10.1); Chloride, Blood 106 mmol/L (98-108); Creatinine, Blood 1.28 mg/dL (0.40-1.00); Glucose, Blood 166 mg/dL (70-99); Phosphorus, Blood 2.5 mg/dL (2.5-4.9); Potassium, Blood 3.6 mmol/L (3.5-5.5); Sodium, Blood 135 mmol/L (136-145)
[2025-08-23 07:16] VITALS: BP 100/51
[2025-08-23 11:18] VITALS: BP 115/64
[2025-08-23] MEDS ORDERED: ZINC OXIDE/PETROLATUM, YELLOW 1 APPLIC/71 GM PASTE TOP PRN (12:20)
[2025-08-23 15:50] VITALS: BP 141/79
--- NOTE | 2025-08-23 17:28 | NUR ---
SHIFT SUMMARY PATIENT IS A&OX4, SLOW TO RESPOND AT TIMES. ON RA. TELE RUNNING SINUS ARRYTHMIA WITH 1ST DEGREE AV BLOCK AND PAC'S. HAS NOT GOTTEN UP FOR NURSING STAFF TODAY, HOWEVER, SHE DID WORK WITH OT AND THEN LATER REFUSED TO WORK WITH PT. SKIN AND ROSALINDA-CARE PERFORMED WITH COMPLETE BED CHANGE. PATIENT IS RESISTANT TO CARE. TREATED A HEADACHE WITH TYLENOL PER EMAR. BED IS LOW AND LOCKED, CALL LIGHT IN REACH.
[2025-08-23 19:31] VITALS: BP 139/74
[2025-08-24] VITALS (7 sets, daily range): BP systolic 92–130; BP diastolic 50–71
--- NOTE | 2025-08-24 04:09 | NUR ---
SHIFT SUMMARY A&OX4, MAKES NEEDS KNOWN, CALL LIGHT WITHIN REACH. PATENT IV RFA, DRESSING CHANGED. REMAINS 2P MAX ASSIST FOR Q2H TURNS AND ROSALINDA CARE / BRIEF CHANGES. DID HAVE 2 LARGE, DIARRHEAL BMS EVENING OF 08/23 THRU AM 08/24. ADVISE HOLDING BOWEL CARE THIS AM. PT ACTIVELY EXCORIATING R POSTERIOR THIGH/BUTTOCK WHILE ACTIVELY SOILED OF STOOL. EDUCATED ON RISK OF INCREASING INFECTION AND WOUNDS ALREADY PRESENT, ASKING PT TO NOT EXCORIATE, HOWEVER PT IS NOT COMPLIANT. SHE IS AMENABLE TO HAVING ABDOMINAL BINDER PLACED THIS EVENING FOR PERIUMBILICAL HERNIA, AND TOLERATES THIS WELL. IV RFA. TELE: SR @ 87 BPM, 1st DEG HB. AYALA IN PLACE DRAINING YELLOW URINE TO GRAVITY CONTAINING 1-2 CM BITS OF SKIN TISSUE DRAINING, NO BLOOD/CLOTS. PT VERBALIZING PLAN TO ATTEMPT SITTING ON EOB AND/OR TRANSFERRING TO BSC/CHAIR LATER TODAY.
[2025-08-24 06:41] LABS: Anion Gap 10.0 mmol/L (3-11); Blood Urea Nitrogen 13.0 mg/dL (8-24); CO2, Blood 23.0 mmol/L (21-32); Calcium, Blood 8.0 mg/dL (8.5-10.1); Chloride, Blood 105.0 mmol/L (98-108); Creatinine, Blood 1.25 mg/dL (0.40-1.00); Glucose, Blood 174.0 mg/dL (70-99); Potassium, Blood 3.5 mmol/L (3.5-5.5); Sodium, Blood 134.0 mmol/L (136-145)
[2025-08-24 07:38] LABS: APTIMA MEDIA TYPE Urine; T. VAGINALIS BY TMA Negative (Negative)
--- NOTE | 2025-08-24 15:41 | NUR ---
SHIFT SUMMARY PATIENT IS A&OX4, ON ROOM AIR, WITH TELEMETRY RUNNING SINUS ARRYTHMIA AND 1 DEGREE AVB AT 76BPM. SHE STOOD 3 TIMES TODAY WITH NURSING STAFF AND OT. SHE IS TO WORK WITH PT TOMORROW FIRST THING, HER NEXT GOAL IS TO TAKE A STEP AND PIVOT. NO ACUTE EVENTS THIS SHIFT. BED IS LOCKED AND LOW, CALL LIGHT IN REACH.
[2025-08-25 04:19] VITALS: BP 111/58
--- NOTE | 2025-08-25 06:18 | NUR ---
CASHIER CHECKER SUMMARY PT A&OX4, VSS. ABLE TO COMMUNICATE NEEDS APPROPRIATELY. PT HAS BEEN ASLEEP FOR MOST OF THE NIGHT. CHEST RISE/RESPIRATIONS NOTED. REMAINS ON TELE. SR AT 82 W/ 1ST DEG AV BLOCK AND PACS. AYALA REMAINS IN PLACE. DRAINING CLEAR, YELLOW URINE TO GRAVITY. PT CONTINUES TO BE EXTREMELY UNMOVITVATED. REFUSING TO ATTEMPT TO GET UP DESPITE ENCOURAGEMENT AND EDUCATION. AT ONE POINT, PT ASKED FOR CRACKERS AND WAS TOLD SHE COULD HAVE CRACKERS IF SHE WOULD SIT UP IN BED EATING IN BED LYING DOWN POSED A CHOCKING HAZARD. PT OPTED TO NOT EAT INSTEAD AND SLEEP. BED RAILS UP X 2, BED IN LOWEST POSITION, BED WHEELS LOCKED, PERSONAL BELONGINGS AND CALL LIGHT WITHIN REACH FOR SAFETY.
[2025-08-25 07:45] VITALS: BP 108/67
[2025-08-25 11:45] VITALS: BP 106/66
[2025-08-25 15:28] VITALS: BP 111/72
--- NOTE | 2025-08-25 18:00 | NUR ---
SUMMARY- PT A/O X3, USES CALL LIGHT APPROPRIATELY. PT IS RESISTANT AND UNINTERESTED IN MOBILITY RELATED TO FEAR OF FALLING. WORKED WITH PT/OT TOGETHER THIS AM AND ABLE TO SIT/STAND FOR 1-2 SECONDS APPROX 6 REPS. INSTRUICTED TO SIT PT AT EDGE OF BED FOR ALL MEALS. RECOMMENDING SNF. SAT AT EDGE OF BED FOR DINNER BUT DECLINED LUNCH. ABLE TO BALANCE DURING DINNER AND EAT AT EDGE OF BED. PT HAS SEVERE EXCORIATION OF PERINIUM ESPECIALLY LABIA. PT HAD XXLG SEMIFORMED BROWN BM TODAY. CLEANSED THOROUGHLY AND APPLIED MICLOOZOLE DUST OVER ROSALINDA, ZINC TO EXCORIATION AND SKIN BARRIER/MOISTERIZER TO PEALING SKIN SURROUNDING. PT TOLERATING FOOD AND FLUIDS. VSS. WILL REPORT TO MENG CALIXTO
[2025-08-25 19:31] VITALS: BP 119/73
[2025-08-26 00:39] VITALS: BP 119/76
[2025-08-26 04:08] VITALS: BP 116/64
--- NOTE | 2025-08-26 04:52 | NUR ---
WINDOWS SECURITY ENGINEER SUMMARY PT A&OX4, VSS. ABLE TO COMMUNCIATE NEEDS APPRORPRIATELY. PT HAS BEEN ASLEEP FOR MOST OF THE NIGHT. CHEST RISE/RESPIRATIONS NOTED. REMAINS ON TELE. SR AT 72 W/ 1ST DEG AV BLOCK. AYALA REMAINS IN PLACE. DRAINING CLEAR, YELLOW URINE TO GRAVITY. FREE OF KINKS/OBSTRUCTIONS. PT CONTINUES TO BE EXTREMELY UNMOTIVATED AND REFUSES TO ATTEMPT TO GET UP OR SIT ON EDGE OF BED. AUTHOR AND BAG SEWER PROVIDING ENCOURAGEMENT AND EDUCATION ON IMPORTANCE OF GETTING UP WELL REINFORCING SAFETY PRECAUTION OF SITTING UP BEFORE EATING ANYTHING. BED RAILS UP X 2, BED IN LOWEST POSITION, BED WHEELS LOCKED, PERSONAL BELONGINGS AND CALL LIGHT WITHIN REACH FOR SAFETY.
[2025-08-26 07:28] VITALS: BP 103/69
[2025-08-26 11:21] VITALS: BP 97/67
[2025-08-26] MEDS ORDERED: CEFTRIAXON1 GM/50 M1 IV (15:17)
[2025-08-26] MEDS ORDERED: Diflucan100 MG PO (15:18)
[2025-08-26] MEDS ORDERED: VISBIOME 112.51 EACH PO (15:19)
[2025-08-26] MEDS ORDERED: MICONAZOLE NIT130 GM TOP (15:19)
[2025-08-26] MEDS ORDERED: ZINC OXIDE57 GM TOP (15:20)
--- NOTE | 2025-08-26 15:58 | NUR ---
PT DC'D TO R 1515 VIA [facility] TRANSPORT. SENT WITH BELONGINGS. SENT WITH AYALA CATH FOR SKIN BREAKDOWN. ACCIDENTALLY SENT TO [facility] WITH TELE, WILL RETREIVE LATER AND BRING BACK TO HOSP. UNABLE TO CALL REPORT PHONE BUSY MULT ATTEMPTS. MEDICATED WITH TYLENOL PRIOR TO DC.
== END 2025-08-26 15:15 | DRG 871 ==
LOC: ER 03:31 → MEDS 06:36 → ENPENDDIS 08-26 13:49 → MEDS 08-26 15:15
PROVIDERS: Emergency Medicine; Internal Medicine; ADMIT Student in an Organized Health Care Education/Training Program
PROC: 0T9B70Z Drainage of Bladder with Drainage Device, Via Natural or Artificial Opening (ICD-10-PCS; principal; 2025-08-21)
PROC: 3E03329 Introduction of Other Anti-infective into Peripheral Vein, Percutaneous Approach (ICD-10-PCS; 2025-08-21)
DX: A41.89 Other specified sepsis (principal); G92.8 Other toxic encephalopathy; E87.20 Acidosis, unspecified; K56.609 Unspecified intestinal obstruction, unspecified as to partial versus complete obstruction; E87.1 Hypo-osmolality and hyponatremia; N89.8 Other specified noninflammatory disorders of vagina; E87.6 Hypokalemia; R54 Age-related physical debility; R65.20 Severe sepsis without septic shock; I10 Essential (primary) hypertension; E86.0 Dehydration; N30.91 Cystitis, unspecified with hematuria; K59.00 Constipation, unspecified; E03.9 Hypothyroidism, unspecified; E66.01 Morbid (severe) obesity due to excess calories; K42.9 Umbilical hernia without obstruction or gangrene; B37.2 Candidiasis of skin and nail; E78.5 Hyperlipidemia, unspecified; E83.39 Other disorders of phosphorus metabolism; E11.65 Type 2 diabetes mellitus with hyperglycemia; Z60.2 Problems related to living alone; Z79.4 Long term (current) use of insulin; Z79.84 Long term (current) use of oral hypoglycemic drugs; Z79.890 Hormone replacement therapy; Z79.899 Other long term (current) drug therapy; Z88.1 Allergy status to other antibiotic agents
CPT/HCPCS: 36415; 51702; 70450; 74177; 80048; 80053; 80069; 81001; 82550; 82947; 83036; 83605; 83690; 83735; 84100; 84439; 84443; 85025; 87040; 87077; 87086; 87186; 87491; 87591; 87661; 93005; 93010; 96365; 97162; 97165; 97530; 99285-25; A9270; J0696; J1650; J7030; J7050; J7060; J7120; Q9967